=== PATIENT | female | born 1995 | race Caucasian/White ===

== ENCOUNTER 2019-01-24 12:10 | Observation (INO) | payer OTHER ==
[~2019-01-24] VITALS: Ht 152.4 cm; Wt 64.0 kg
== END 2019-01-24 13:45 | disposition home or self-care (01) ==
LOC: 4S 12:10
PROVIDERS: ADMIT Obstetrics & Gynecology; ATTEND Obstetrics & Gynecology
DX: Z34.93 Encounter for supervision of normal pregnancy, unspecified, third trimester (principal); Z3A.38 38 weeks gestation of pregnancy
CPT/HCPCS: 81002; G0378

== ENCOUNTER 2019-01-27 13:15 | Observation (INO) | payer OTHER ==
[~2019-01-27] VITALS: Ht 159 cm; Wt 64.0 kg
[2019-01-27 13:41] VITALS: BP 112/70
[2019-01-27] MEDS ORDERED: ACET-66 PO (13:43)
[2019-01-27] MEDS ORDERED: PREN1TAB80 PO (13:43)
== END 2019-01-27 14:20 | disposition home or self-care (01) ==
LOC: 4S 13:15
PROVIDERS: ADMIT Obstetrics & Gynecology; ATTEND Obstetrics & Gynecology
DX: Z34.93 Encounter for supervision of normal pregnancy, unspecified, third trimester (principal); Z3A.39 39 weeks gestation of pregnancy
CPT/HCPCS: 81002; G0378

== ENCOUNTER 2019-02-01 17:18 | Inpatient (IN) | payer OTHER ==
[~2019-02-01] VITALS: Ht 152.4 cm; Wt 64.1 kg
[~2019-02-01 17:18] MED LIST: ACET-66 PO; PREN1TAB80 PO
[2019-02-01] MEDS ORDERED: OXYTOCIN 20 UNITS/LACT RINGERS 1,000 ML IV ONE (20:04)
[2019-02-01] MEDS ORDERED: RINGERS SOLUTION,LACTATED 1,000 ML IV PRN (20:04)
[2019-02-01] MEDS ORDERED: OXYTOCIN 30 UNITS/LACT RINGERS 500 ML IV ONE (20:04)
[2019-02-01] MEDS ORDERED: METOCLOPRAMIDE HCL 5 MG/ML 2 ML VIAL IVP PRN (20:15)
[2019-02-01] MEDS ORDERED: FentaNYL CITRATE-PF 100 MCG/2 ML VIAL IVP PRN (20:15)
[2019-02-01] MEDS ORDERED: CITRIC ACID/SODIUM CITRATE 30 ML SOLUTION UDCUP PO PRN (20:15)
[2019-02-01] MEDS: RINGERS SOLUTION,LACTATED 1,000 ML IV SCH ×3 (20:31→23:26)
[2019-02-01 20:37] LABS: BASOPHILS % (AUTO) 0.9 % (0.0-2.0); EOSINOPHILS % (AUTO) 0.6 % (1.0-6.0); HEMATOCRIT 37.3 % (36-46); HEMOGLOBIN 12.3 g/dL (12.0-16.0); LYMPHOCYTES # (AUTO) 2.2 K/uL (1.0-4.8); MEAN CORPUSCULAR VOLUME 88 fL (80-100); MONOCYTES # (AUTO) 0.9 K/uL (0.1-1.0); MONOCYTES % (AUTO) 5.8 % (2.0-9.0); NEUTROPHILS # (AUTO) 11.6 K/uL (1.8-7.7); NEUTROPHILS % (AUTO) 77.7 % (40.0-70.0); PLATELET COUNT (AUTO) 249 K/uL (150-450); RED BLOOD CELL COUNT(AUTO) 4.24 MIL/uL (4.00-5.20); RED CELL DISTRIBUTION WIDTH 13.7 % (11.5-14.5)
[2019-02-01] MEDS ORDERED: ROPIVACAINE HCL/PF 0.2% 100 ML ED ONE (21:14)
[2019-02-01] MEDS ORDERED: LIDOCAINE/PF 2% 5 ML VIAL ONE (21:14)
[2019-02-01] MEDS ORDERED: ROPIVACAINE HCL/PF 0.2% 100 ML ED PRN (21:30)
[2019-02-01] MEDS ORDERED: NALBUPHINE HCL 10 MG/ML VIAL IVP PRN (21:30)
[2019-02-01] MEDS ORDERED: DiphenhydrAMINE HCL 50 MG/ML VIAL IVP PRN (21:30)
[2019-02-01] MEDS ORDERED: ONDANSETRON HCL 4 MG/2 ML VIAL IVP PRN (21:30)
[2019-02-01] MEDS ORDERED: OXYTOCIN 30 UNITS/LACT RINGERS 500 ML IV PRN (22:17)
[2019-02-02] MEDS: RINGERS SOLUTION,LACTATED 1,000 ML IV SCH ×2 (00:49→08:36)
[2019-02-02] MEDS ORDERED: OXYGEN THERAPY IH SCH (08:00)
[2019-02-02] MEDS ORDERED: MINERAL OIL 30 ML UDCUP ONE (09:26)
[2019-02-02] MEDS ORDERED: LIDOCAINE/PF 1% 30 ML VIAL ONE (10:49)
[2019-02-02] MEDS ORDERED: OXYTOCIN 20 UNITS/LACT RINGERS 1,000 ML IV SCH (11:11)
[2019-02-02] MEDS ORDERED: BENZOCAINE 20%/MENTHOL 56 GM SPRAY CANISTER TP PRN (11:15)
[2019-02-02] MEDS ORDERED: LANOLIN 7 GM OINTMENT TP PRN (11:15)
[2019-02-02] MEDS ORDERED: MEASLES/MUMPS/RUBELLA VACCINE, LIVE 0.5 ML/VIAL SQ ONE (11:15)
[2019-02-02] MEDS ORDERED: GLYCERIN/WITCH HAZEL LEAF 40 PADS JAR TP PRN (11:15)
[2019-02-02] MEDS: IBUPROFEN 600 MG TABLET PO PRN ×2 (11:22→17:42)
[2019-02-02] MEDS: ACETAMINOPHEN/CODEINE 300-30 MG TABLET PO PRN ×3 (11:23→20:42)
[2019-02-02] MEDS: MAGNESIUM HYDROXIDE SUSPENSION 30 ML UDCUP PO PRN (20:42)
[2019-02-02] MEDS: SENNA/DOCUSATE SODIUM 8.6-50 MG TABLET PO PRN (20:42)
[2019-02-03] MEDS: IBUPROFEN 600 MG TABLET PO PRN (06:00)
[2019-02-03 06:03] LABS: BASOPHILS % (AUTO) 0.2 % (0.0-2.0); EOSINOPHILS % (AUTO) 0.3 % (1.0-6.0); HEMATOCRIT 26.6 % (36-46); HEMOGLOBIN 8.7 g/dL (12.0-16.0); LYMPHOCYTES # (AUTO) 2.4 K/uL (1.0-4.8); LYMPHOCYTES % (AUTO) 11.4 % (22.0-44.0); MEAN CORPUSCULAR HEMOGLOBIN 29.5 pg (26.0-34.0); MEAN CORPUSCULAR HGB CONC 32.7 G/dL (31.0-37.0); MEAN CORPUSCULAR VOLUME 90 fL (80-100); MONOCYTES # (AUTO) 1.3 K/uL (0.1-1.0); MONOCYTES % (AUTO) 6.4 % (2.0-9.0); NEUTROPHILS % (AUTO) 81.7 % (40.0-70.0); PLATELET COUNT (AUTO)-OB 197 K/uL (150-450); RED BLOOD CELL COUNT(AUTO) 2.95 MIL/uL (4.00-5.20); RED CELL DISTRIBUTION WIDTH 13.7 % (11.5-14.5)
[2019-02-03] MEDS: SENNA/DOCUSATE SODIUM 8.6-50 MG TABLET PO PRN (09:19)
[2019-02-03] MEDS: MAGNESIUM HYDROXIDE SUSPENSION 30 ML UDCUP PO PRN (09:19)
[2019-02-03] MEDS ORDERED: ACET-66 PO (10:26)
[2019-02-03] MEDS ORDERED: DSS100 PO (10:27)
[2019-02-03] MEDS ORDERED: IBUP-2070 PO (10:27)
== END 2019-02-03 12:55 | disposition home or self-care (01) | DRG 807 ==
LOC: 4S 17:18 → OBSVTOIN 17:18
PROVIDERS: ADMIT Obstetrics & Gynecology; ATTEND Obstetrics & Gynecology
PROC: 10D07Z6 Extraction of Products of Conception, Vacuum, Via Natural or Artificial Opening (ICD-10-PCS; principal; 2019-02-02)
PROC: 0KQM0ZZ Repair Perineum Muscle, Open Approach (ICD-10-PCS; 2019-02-02)
PROC: 0W8NXZZ Division of Female Perineum, External Approach (ICD-10-PCS; 2019-02-02)
PROC: 3E033VJ Introduction of Other Hormone into Peripheral Vein, Percutaneous Approach (ICD-10-PCS; 2019-02-02)
PROC: 3E0R3BZ Introduction of Anesthetic Agent into Spinal Canal, Percutaneous Approach (ICD-10-PCS; 2019-02-02)
PROC: 00HU33Z Insertion of Infusion Device into Spinal Canal, Percutaneous Approach (ICD-10-PCS; 2019-02-02)
DX: O77.0 Labor and delivery complicated by meconium in amniotic fluid (principal); Z37.0 Single live birth; O70.1 Second degree perineal laceration during delivery; O66.5 Attempted application of vacuum extractor and forceps; Z3A.40 40 weeks gestation of pregnancy
CPT/HCPCS: 86850; 86900; 86901; J2590; J2795; J3490; J7120